=== PATIENT | female | born 1945 | race Caucasian/White ===

== ENCOUNTER 2021-06-12 11:45 | Observation (INO) | payer MEDICARE, BC ==
[2021-06-12 12:16] LABS: Hemoglobin 14.7 g/dL (12.0-16.0); Mean Corpuscular HGB CONC 34.9 g/dL (32.0-36.0); Mean Corpuscular Hemoglobin 32.2 pg (27.0-31.0); Mean Corpuscular Volume 92.3 fL (78.0-98.0); Mean Platelet Volume 6.2 fL (7.4-10.4); Platelet Count 186 thou/uL (130-400); RBC Distribution Width 12.1 % (11.5-14.5); Red Blood Cell (RBC) Count 4.58 mill/uL (4.20-5.40); White Blood Cell (WBC) Count 4.7 thou/uL (4.8-10.8)
[2021-06-12 12:25] LABS: PTT 28.4 sec (22.9-36.1)
[2021-06-12 12:47] LABS: ALT (SGPT) 14 U/L (8-55); AST (SGOT) 22 U/L (5-34); Albumin 4.5 g/dL (3.4-4.8); Alkaline Phosphatase 62 U/L (40-110); Anion Gap 15 mmol/L (10-20); BUN (Urea Nitrogen) 6 mg/dL (9.8-20.1); Bilirubin, Total 0.6 mg/dL (0.2-1.2); Calc. Creatinine Clearance 0 mL/min (70-130); Calcium 9.5 mg/dL (7.8-10.44); Carbon Dioxide 23 mmol/L (23-31); Chloride 97 mmol/L (98-107); Glucose 103 mg/dL (83-110); Potassium 3.4 mmol/L (3.5-5.1); Protein, Total 7.5 g/dL (5.8-8.1); Sodium 132 mmol/L (136-145)
[2021-06-12 12:49] LABS: Eosinophils 2 % (0-10); Lymphocytes 20 % (21-51); MDiff Complete? YES; Monocytes 15 % (0-10); Neutrophil 61 % (42-75); RBC Morphology Normal; Reactive Lymphocytes 2 % (0-10)
[2021-06-12] MEDS ORDERED: Ondansetron PF 4 MG/2 ML Vial IVP PRN (13:34)
[2021-06-12] MEDS ORDERED: Acetaminophen 325 MG TAB PO PRN (13:34)
[2021-06-12] MEDS ORDERED: hydrALAZINE 20 MG/ML VIAL SLOW IVP PRN (13:38)
[2021-06-12 14:18] LABS: Magnesium 1.9 mg/dL (1.6-2.6)
[2021-06-12] MEDS ORDERED: Aspirin 81 mg Enteric Coated Tablet PO SCH (14:30)
[2021-06-12] MEDS ORDERED: Lorazepam 2 MG/ML VIAL SLOW IVP SCH (14:30)
[2021-06-12] MEDS ORDERED: Potassium Bicarbonate/Cit Ac 25 MEQ TAB PO SCH (14:30)
[2021-06-12] MEDS ORDERED: Enoxaparin Sodium 40 MG/0.4 ML SYRINGE SC SCH (14:30)
[2021-06-12 14:42] LABS: Bilirubin Negative (Negative); Blood, Urine Negative (Negative); Glucose, Urine (Dipstick) Negative (Negative); Ketone, Urine Negative (Negative); Leukocyte Negative (Negative); Nitrite Negative (Negative); Protein, Urine (Dipstick) Negative (Neg-Trace); Urobilinogen 0.2 mg/dL (Less than 2); pH, Urine 7.5 (5.0-9.0)
[2021-06-12 14:49] LABS: Clarity Clear (Clear)
[2021-06-12 14:50] LABS: Bacteria/HPF Rare-Few HPF (None Seen); RBC/HPF None Seen HPF (0-3); WBC/HPF None Seen HPF (0-3)
[2021-06-12 16:07] VITALS: BMI 20.1
[2021-06-12] MEDS: metroNIDAZOLE 500 MG TAB PO SCH (21:53)
[2021-06-12] MEDS: Lorazepam 1 MG TAB PO PRN (21:54)
[2021-06-12] MEDS: Doxycycline 100 MG CAP PO SCH (21:54)
[2021-06-12] MEDS: Atorvastatin Calcium 10 MG TAB PO SCH (21:54)
[2021-06-12] MEDS: Pepto Bismol Chew TAB PO SCH (22:08)
[2021-06-12 23:50] LABS: SARS-CoV-2 PCR by NAA Not Detected (NotDetected)
[2021-06-13 05:32] LABS: Anion Gap 12 mmol/L (10-20); BUN (Urea Nitrogen) 8 mg/dL (9.8-20.1); Calc. Creatinine Clearance 69 mL/min (70-130); Calcium 8.8 mg/dL (7.8-10.44); Carbon Dioxide 26 mmol/L (23-31); Cardiac Risk 2.4 (Less than 4.5); Chloride 96 mmol/L (98-107); Cholesterol 201 mg/dl (< 200 Desired); Glucose 92 mg/dL (83-110); HDL Cholesterol 83 mg/dL (>60 Neg Risk); LDL Cholesterol, Calculated 104 mg/dL; Sodium 130 mmol/L (136-145); Triglycerides 68 mg/dL (Less than 150)
[2021-06-13 05:50] LABS: Band 2 % (5-11); Hemoglobin 12.8 g/dL (12.0-16.0); Lymphocytes 27 % (21-51); MDiff Complete? YES; Mean Corpuscular HGB CONC 35.6 g/dL (32.0-36.0); Mean Corpuscular Hemoglobin 32.3 pg (27.0-31.0); Mean Corpuscular Volume 90.9 fL (78.0-98.0); Mean Platelet Volume 6.4 fL (7.4-10.4); Monocytes 14 % (0-10); Neutrophil 57 % (42-75); Platelet Count 200 thou/uL (130-400); Platelet Morphology Comment Appears Adequate; RBC Morphology Normal; Red Blood Cell (RBC) Count 3.95 mill/uL (4.20-5.40)
[2021-06-13] MEDS: Doxycycline 100 MG CAP PO SCH ×2 (08:35→20:18)
[2021-06-13] MEDS: Aspirin 81 mg Enteric Coated Tablet PO SCH (08:35)
[2021-06-13] MEDS: Enoxaparin Sodium 40 MG/0.4 ML SYRINGE SC SCH (08:35)
[2021-06-13] MEDS ORDERED: Non-Formulary Item 1 EACH (Esomeprazole Magnesium [Nexium] 40 MG Cap) PO SCH (09:00)
[2021-06-13] MEDS: metroNIDAZOLE 500 MG TAB PO SCH ×3 (09:44→22:28)
[2021-06-13] MEDS: Pepto Bismol Chew TAB PO SCH ×4 (09:44→22:28)
[2021-06-13] MEDS ORDERED: Docusate 100 MG CAP PO PRN (16:33)
[2021-06-13] MEDS ORDERED: Fioricet 325/50/40 mg Tablet PO PRN (16:33)
[2021-06-13] MEDS ORDERED: Polyethylene Glycol 3350 17 GM Packet PO PRN (16:34)
[2021-06-13] MEDS ORDERED: Lorazepam 2 MG/ML VIAL SLOW IVP SCH (17:00)
[2021-06-13] MEDS: Lorazepam 1 MG TAB PO PRN (22:27)
[2021-06-13] MEDS: Atorvastatin Calcium 10 MG TAB PO SCH (22:28)
[2021-06-14 07:51] VITALS: TEMP 98.2
[2021-06-14] MEDS: Aspirin 81 mg Enteric Coated Tablet PO SCH (08:17)
[2021-06-14] MEDS: Enoxaparin Sodium 40 MG/0.4 ML SYRINGE SC SCH (08:18)
[2021-06-14] MEDS: Doxycycline 100 MG CAP PO SCH (08:18)
[2021-06-14] MEDS: metroNIDAZOLE 500 MG TAB PO SCH (10:29)
[2021-06-14] MEDS: Pepto Bismol Chew TAB PO SCH (10:29)
[2021-06-14 12:41] VITALS: BP 150/85
== END 2021-06-14 10:41 | disposition home or self-care (01) ==
LOC: ERS 11:45 → NEURO 13:41
PROVIDERS: ADMIT Internal Medicine; ATTEND Internal Medicine
DX: R20.0 Anesthesia of skin (principal); R53.1 Weakness; A04.8 Other specified bacterial intestinal infections; E87.6 Hypokalemia; M47.812 Spondylosis without myelopathy or radiculopathy, cervical region; M50.31 Other cervical disc degeneration, high cervical region; M48.02 Spinal stenosis, cervical region; I08.1 Rheumatic disorders of both mitral and tricuspid valves; Z86.19 Personal history of other infectious and parasitic diseases; Z79.2 Long term (current) use of antibiotics; Z79.890 Hormone replacement therapy; Z79.899 Other long term (current) drug therapy; Z88.5 Allergy status to narcotic agent; Z20.822 Contact with and (suspected) exposure to COVID-19
CPT/HCPCS: 70450; 70551; 72141; 80048; 80053; 80061; 81003; 82607; 82746; 83735; 85025 ×2; 85610; 85730; 93005; 93306; 93880; 97116 ×2; 97139 ×4; 99285; U0003; U0005; 36415; 96372; 96374; 96375; 96376; G0378; J1650; J2060; J2405